=== PATIENT | male | born 1990 | race Caucasian/White ===

== ENCOUNTER → 2022-03-22 12:23 | Outpatient (CLI) | payer OTHER, SELFPAY ==
--- NOTE | 2022-03-22 12:30 | DI.RAD.S_ITS ---
PROCEDURE: XR FINGER RT MIN 2V INDICATIONS: S/P FALL, POINT TENDERNESS OVER BASE OF THUMB TECHNIQUE: AP hand, 2 views of the 1st finger(s) acquired. COMPARISON: [facility], CR, XR WRIST RT MIN 3V, 03/22/2022, 12:30. FINDINGS: Bones: There is 3rd distal phalangeal tuft fracture of uncertain chronicity. No acute fracture of the 1st finger. 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 No dislocations. No suspicious bony lesions. Soft tissues: No suspicious soft tissue calcifications. IMPRESSION: 1. No acute osseous abnormalities in the 1st finger. 2. 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 3. 3rd distal phalangeal tuft fracture of uncertain chronicity. Dictated by: Nabeel Fleming M.D. on 03/22/2022 at 12:51 Approved by: Nabeel Fleming M.D. on 03/22/2022 at 12:54
--- NOTE | 2022-03-22 12:30 | DI.RAD.S_ITS ---
PROCEDURE: XR WRIST RT MIN 3V INDICATIONS: S/P FALL, POINT TENDERNESS OVER BASE OF THUMB TECHNIQUE: 4 views of the wrist were acquired. COMPARISON: [facility], CR, XR FINGER RT MIN 2V, 03/22/2022, 12:30. FINDINGS: Bones: No fractures or dislocations. Possible old 5th metacarpal fracture. No suspicious bony lesions. Scaphoid view: Scaphoid is intact. Soft tissues: No suspicious soft tissue calcifications. IMPRESSION: No acute osseous abnormalities. Dictated by: Nabeel Fleming M.D. on 03/22/2022 at 12:50 Approved by: Nabeel Fleming M.D. on 03/22/2022 at 12:51
== END ==
PROVIDERS: Referring Provider Physician Assistant Medical; Visit Provider Physician Assistant Medical
DX: S62.632A Displaced fracture of distal phalanx of right middle finger, initial encounter for closed fracture (principal); M19.041 Primary osteoarthritis, right hand; M79.644 Pain in right finger(s); W19.XXXA Unspecified fall, initial encounter
CPT/HCPCS: 73110; 73140